=== PATIENT | male | born 1945 | race Two or more races ===

== ENCOUNTER → 2021-03-27 | Outpatient (CLI) | payer OTHER ==
[2021-03-27 09:45] LABS: Basophils # (auto) 0 10 ^3/uL (0-0.2); Eosinophils # (auto) 0.2 10 ^3/uL (0-0.8); Eosinophils % (auto) 4.2 % (0.0-7.0); Lymphocytes # (auto) 0.5 10 ^3/uL (0.4-5.4)
[2021-03-27 09:50] LABS: Basophils % (auto) 0.6 % (0.0-2.0); Lymphocytes % (auto) 11.9 % (10.0-50.0); Mean Corpuscular Hemoglobin 32.5 pg (28.0-32.0); Mean Corpuscular Hgb Conc. 33.7 g/dL (32.0-36.0); Mean Corpuscular Volume 96.7 fL (80.0-100.0); Monocytes # (auto) 0.5 10 ^3/uL (0-1.3); Monocytes % (auto) 12.6 % (0.0-12.0); Neutrophils % (auto) 70.7 % (37.0-80.0); Red Blood Cells 2.06 10^6/uL (4.5-5.90); Red Cell Distribution Width 16.8 % (11.8-14.3); White Blood Cell 4.2 10^3/uL (4.4-10.8)
[2021-03-27 10:58] LABS: Hemoglobin 6.7 g/dL (13.5-17.5)
[2021-03-27 11:05] LABS: Urine Bacteria FEW /hpf (None Seen); Urine Blood 1+ /uL (Negative); Urine Hyaline Cast FEW /lpf (0 - 2); Urine Specific Gravity 1.013 (1.001-1.035); Urine WBC 1 /hpf (0 - 3)
[2021-03-27 11:25] LABS: Albumin 3.2 g/dL (3.4-5.0); Calcium 8.4 mg/dL (8.5-10.1); Potassium 3.5 mmol/L (3.5-5.1)
[2021-03-27 11:30] LABS: BUN/Creatinine Ratio 6.4; Bilirubin, Total 0.9 mg/dL (0.2-1.0); Total Protein 6.9 g/dL (6.4-8.2)
== END | disposition home or self-care (01) ==
LOC: LAB 08:51
PROVIDERS: ATTEND Student in an Organized Health Care Education/Training Program
DX: E11.9 Type 2 diabetes mellitus without complications (principal); I10 Essential (primary) hypertension
CPT/HCPCS: 36415; 80053; 80061; 81001; 82043; 83036; 84443; 85025

== ENCOUNTER 2021-05-02 01:17 | Inpatient (IN) | payer OTHER ==
[~2021-05-02] VITALS: Ht 180.3 cm; Wt 101.1 kg
[2021-05-02] MEDS ORDERED: PANTOPRAZOLE 40 MG/10 ML VIAL INJ IV ONE (01:45)
[2021-05-02] MEDS ORDERED: METOPROLOL TARTRATE 1MG/1ML-5ML VIAL IV PRN (02:30)
[2021-05-02] MEDS ORDERED: DEXTROSE (50%) 50ML SYRG IV PRN (02:30)
[2021-05-02] MEDS ORDERED: PANTOPRAZOLE 80 MG in SODIUM CHL 0.9% 100 ML IV ONE (02:30)
[2021-05-02 02:44] LABS: Basophils # (auto) 0 10 ^3/uL (0-0.2); Eosinophils # (auto) 0.1 10 ^3/uL (0-0.8); Lymphocytes # (auto) 0.5 10 ^3/uL (0.4-5.4); Mean Corpuscular Volume 98.2 fL (80.0-100.0); Neutrophils # (auto) 2.6 10 ^3/uL (1.6-8.6); Nucleated Red Blood Cells % 0.1 %; White Blood Cell 3.8 10^3/uL (4.4-10.8)
[2021-05-02] MEDS ORDERED: SODIUM CHLORIDE 0.9% 500 ML IV SCH (02:45)
[2021-05-02] MEDS ORDERED: MORPHINE SULFATE INJECTION 2 MG/ML SYRG IV PRN ×2 (02:45→11:45)
[2021-05-02] MEDS ORDERED: NITROGLYCERIN 0.4 MG SL TAB SL PRN (02:45)
[2021-05-02] MEDS ORDERED: ONDANSETRON HCL 4 MG/2 ML VIAL IV PRN (02:45)
[2021-05-02] MEDS ORDERED: MORPHINE SULFATE 4 MG/ML SYR/VIAL IV PRN (02:45)
[2021-05-02 02:46] LABS: Basophils % (auto) 0.4 % (0.0-2.0); Eosinophils % (auto) 3.2 % (0.0-7.0); Hematocrit 22.8 % (41.0-53.0); Hemoglobin 7.7 g/dL (13.5-17.5); Lymphocytes % (auto) 13.6 % (10.0-50.0); Mean Corpuscular Hemoglobin 33.3 pg (28.0-32.0); Mean Corpuscular Hgb Conc. 33.9 g/dL (32.0-36.0); Monocytes # (auto) 0.6 10 ^3/uL (0-1.3); Monocytes % (auto) 14.6 % (0.0-12.0); Neutrophils % (auto) 68.2 % (37.0-80.0); Red Blood Cells 2.32 10^6/uL (4.5-5.90); Red Cell Distribution Width 16.3 % (11.8-14.3)
[2021-05-02 04:36] LABS: BUN/Creatinine Ratio 7.4; Calcium 8.3 mg/dL (8.5-10.1); Potassium 3.8 mmol/L (3.5-5.1)
[2021-05-02 04:39] LABS: Bilirubin, Total 0.8 mg/dL (0.2-1.0); Total Protein 6.3 g/dL (6.4-8.2)
[2021-05-02 04:40] LABS: INR 1.21 (0.9-1.15)
[2021-05-02 04:57] LABS: % Iron Saturation 12.9 % (20-55)
[2021-05-02 05:00] VITALS: BP 119/70
[2021-05-02] MEDS ORDERED: SEVE800T8 PO (05:08)
[2021-05-02] MEDS ORDERED: PANT40TA2 PO (05:08)
[2021-05-02] MEDS ORDERED: TERA2CAP45 PO (05:08)
[2021-05-02] MEDS ORDERED: FURO40TA4 PO (05:08)
[2021-05-02] MEDS ORDERED: CLOP75TA70 PO (05:08)
[2021-05-02] MEDS ORDERED: GABA300C10 PO (05:08)
[2021-05-02] MEDS ORDERED: FERR-20 PO (05:08)
[2021-05-02] MEDS ORDERED: APIX5TAB PO (05:08)
[2021-05-02] MEDS ORDERED: AMIT25TA12 PO (05:08)
[2021-05-02] MEDS ORDERED: NIFE1TAB30 PO (05:08)
[2021-05-02] MEDS ORDERED: LEVO50TA7 PO (05:08)
[2021-05-02] MEDS ORDERED: ATOR20TA50 PO (05:08)
[2021-05-02 08:37] LABS: Hematocrit 22.3 % (41.0-53.0); Hemoglobin 7.5 g/dL (13.5-17.5)
[2021-05-02 09:00] VITALS: BP 109/62
[2021-05-02] MEDS ORDERED: PANTOPRAZOLE 40 MG/10 ML VIAL INJ IV SCH (10:00)
[2021-05-02] MEDS: InsuLIN REG 1unit/0.01ml Soln (100units/ml) SC SCH ×3 (11:30→22:46)
[2021-05-02] MEDS: ACCU-CHEK COMFORT CURVE STRIP VI SCH ×2 (11:56→17:33)
[2021-05-02] MEDS ORDERED: FERROUS SULFATE 325mg EC TAB PO ONE (12:00)
[2021-05-02] MEDS ORDERED: NIFEdipine ER 30 MG TAB PO ONE (12:00)
[2021-05-02] MEDS: SEVELAMER 800 MG TAB PO SCH ×2 (12:00→17:45)
[2021-05-02] MEDS ORDERED: TERAZOSIN HCL 1 MG CAP PO ONE (12:00)
[2021-05-02 13:00] VITALS: BP 126/69
[2021-05-02 14:38] LABS: Hematocrit 22.6 % (41.0-53.0); Hemoglobin 7.6 g/dL (13.5-17.5)
[2021-05-02 17:00] VITALS: BP 128/69
[2021-05-02] MEDS: FUROSEMIDE 40 MG TAB PO SCH (17:45)
[2021-05-02 20:44] LABS: Hematocrit 24.1 % (41.0-53.0)
[2021-05-02 22:00] VITALS: BP 117/58
[2021-05-03 05:00] VITALS: BP 101/56
[2021-05-03] MEDS: ACCU-CHEK COMFORT CURVE STRIP VI SCH ×5 (05:17→21:53)
[2021-05-03 06:27] LABS: Basophils # (auto) 0 10 ^3/uL (0-0.2); Eosinophils # (auto) 0.2 10 ^3/uL (0-0.8); Lymphocytes # (auto) 0.5 10 ^3/uL (0.4-5.4); Monocytes # (auto) 0.6 10 ^3/uL (0-1.3); Nucleated Red Blood Cells % 0.1 %
[2021-05-03 06:31] LABS: Basophils % (auto) 0.5 % (0.0-2.0); Eosinophils % (auto) 3.1 % (0.0-7.0); Hematocrit 22.1 % (41.0-53.0); Hemoglobin 7.6 g/dL (13.5-17.5); Mean Corpuscular Hemoglobin 33.5 pg (28.0-32.0); Mean Corpuscular Hgb Conc. 34.2 g/dL (32.0-36.0); Monocytes % (auto) 11.4 % (0.0-12.0); Neutrophils # (auto) 3.9 10 ^3/uL (1.6-8.6); Red Blood Cells 2.26 10^6/uL (4.5-5.90); Red Cell Distribution Width 16.2 % (11.8-14.3); White Blood Cell 5.1 10^3/uL (4.4-10.8)
[2021-05-03] MEDS: FUROSEMIDE 40 MG TAB PO SCH ×2 (06:46→17:45)
[2021-05-03] MEDS: LEVOTHYROXINE SODIUM 50 MCG TAB PO SCH (06:46)
[2021-05-03 06:47] LABS: BUN/Creatinine Ratio 7.9; Calcium 8.5 mg/dL (8.5-10.1); Potassium 4.2 mmol/L (3.5-5.1)
[2021-05-03] MEDS: InsuLIN REG 1unit/0.01ml Soln (100units/ml) SC SCH ×4 (06:47→21:59)
[2021-05-03 06:50] LABS: Bilirubin, Total 0.8 mg/dL (0.2-1.0); Total Protein 6.1 g/dL (6.4-8.2)
[2021-05-03] MEDS: SEVELAMER 800 MG TAB PO SCH ×3 (07:44→17:45)
[2021-05-03 09:00] VITALS: BP 107/58
[2021-05-03] MEDS: FERROUS SULFATE 325mg EC TAB PO SCH (10:06)
[2021-05-03] MEDS: TERAZOSIN HCL 1 MG CAP PO SCH (10:06)
[2021-05-03] MEDS: GABAPENTIN 300 MG CAP PO SCH (10:07)
[2021-05-03] MEDS: ATORVASTATIN 20 MG TAB PO SCH (10:07)
[2021-05-03] MEDS: PANTOPRAZOLE 40 MG TAB PO SCH (10:07)
[2021-05-03] MEDS: NIFEdipine ER 30 MG TAB PO SCH (10:08)
[2021-05-03 13:00] VITALS: BP 119/59
[2021-05-03 17:00] VITALS: BP 112/60
[2021-05-03 22:00] VITALS: BP 113/62
[2021-05-04 05:00] VITALS: BP 112/58
[2021-05-04] MEDS: FUROSEMIDE 40 MG TAB PO SCH (06:17)
[2021-05-04] MEDS: LEVOTHYROXINE SODIUM 50 MCG TAB PO SCH (06:18)
[2021-05-04] MEDS: ACCU-CHEK COMFORT CURVE STRIP VI SCH ×2 (06:29→11:40)
[2021-05-04] MEDS: InsuLIN REG 1unit/0.01ml Soln (100units/ml) SC SCH ×2 (06:29→11:30)
[2021-05-04] MEDS: SEVELAMER 800 MG TAB PO SCH ×2 (07:33→14:06)
[2021-05-04 09:00] VITALS: BP 125/63
[2021-05-04] MEDS: TERAZOSIN HCL 1 MG CAP PO SCH (09:55)
[2021-05-04] MEDS: ATORVASTATIN 20 MG TAB PO SCH (09:55)
[2021-05-04] MEDS: FERROUS SULFATE 325mg EC TAB PO SCH (09:55)
[2021-05-04] MEDS: GABAPENTIN 300 MG CAP PO SCH (09:55)
[2021-05-04] MEDS: NIFEdipine ER 30 MG TAB PO SCH (09:56)
[2021-05-04] MEDS: PANTOPRAZOLE 40 MG TAB PO SCH (09:56)
[2021-05-04 12:48] LABS: Basophils # (auto) 0 10 ^3/uL (0-0.2); Eosinophils # (auto) 0.1 10 ^3/uL (0-0.8); Lymphocytes # (auto) 0.4 10 ^3/uL (0.4-5.4); White Blood Cell 4.3 10^3/uL (4.4-10.8)
[2021-05-04 12:50] LABS: Basophils % (auto) 0.7 % (0.0-2.0); Eosinophils % (auto) 3.4 % (0.0-7.0); Hematocrit 22.5 % (41.0-53.0); Hemoglobin 7.6 g/dL (13.5-17.5); Mean Corpuscular Hgb Conc. 33.7 g/dL (32.0-36.0); Mean Corpuscular Volume 97.9 fL (80.0-100.0); Monocytes # (auto) 0.5 10 ^3/uL (0-1.3); Monocytes % (auto) 11.5 % (0.0-12.0); Neutrophils # (auto) 3.2 10 ^3/uL (1.6-8.6); Neutrophils % (auto) 75.4 % (37.0-80.0); Red Cell Distribution Width 15.8 % (11.8-14.3)
[2021-05-04 13:00] VITALS: BP 133/75
[2021-05-04] MEDS ORDERED: SODIUM CHL 0.9% 1000 ML BAG XX ONE (13:45)
== END 2021-05-04 17:09 | disposition home or self-care (01) | DRG 377 ==
LOC: EDBD 01:17 → ER 01:22 → TELE-WESTW 02:35
PROVIDERS: ADMIT Internal Medicine; ATTEND Internal Medicine Pulmonary Disease
PROC: 5A1D70Z Performance of Urinary Filtration, Intermittent, Less than 6 Hours Per Day (ICD-10-PCS; principal; 2021-05-04)
DX: K29.71 Gastritis, unspecified, with bleeding (principal); N18.6 End stage renal disease; I48.20 Chronic atrial fibrillation, unspecified; D62 Acute posthemorrhagic anemia; I12.0 Hypertensive chronic kidney disease with stage 5 chronic kidney disease or end stage renal disease; N25.81 Secondary hyperparathyroidism of renal origin; Z20.822 Contact with and (suspected) exposure to COVID-19; E11.22 Type 2 diabetes mellitus with diabetic chronic kidney disease; I25.10 Atherosclerotic heart disease of native coronary artery without angina pectoris; R42 Dizziness and giddiness; Z99.2 Dependence on renal dialysis; Z79.01 Long term (current) use of anticoagulants; Z95.5 Presence of coronary angioplasty implant and graft; Z79.02 Long term (current) use of antithrombotics/antiplatelets; Z95.0 Presence of cardiac pacemaker
CPT/HCPCS: 36415; 80053; 82728; 82962; 83540; 83550; 85014; 85018; 85025; 85610; 86850; 86900; 86901; 87081; 87426; 90935; 93005; 96374; C9113; G0378; J1815

== ENCOUNTER → 2021-06-04 | Outpatient (CLI) | payer OTHER ==
[~2021-06-04] MED LIST: AMIT25TA12 PO; APIX5TAB PO; ATOR20TA50 PO; FERR-20 PO; FURO40TA4 PO; GABA300C10 PO; LEVO50TA7 PO; NIFE1TAB30 PO; PANT40TA2 PO; SEVE800T8 PO; TERA2CAP45 PO
[2021-06-04 09:42] LABS: Basophils # (auto) 0.2 10 ^3/uL (0-0.2); Basophils % (auto) 4.6 % (0.0-2.0); Eosinophils # (auto) 0.1 10 ^3/uL (0-0.8); Eosinophils % (auto) 3.7 % (0.0-7.0); Hematocrit 27.1 % (41.0-53.0); Lymphocytes # (auto) 0.3 10 ^3/uL (0.4-5.4); Lymphocytes % (auto) 8.6 % (10.0-50.0); Mean Corpuscular Hemoglobin 30.8 pg (28.0-32.0); Mean Corpuscular Hgb Conc. 33.2 g/dL (32.0-36.0); Mean Corpuscular Volume 92.8 fL (80.0-100.0); Monocytes # (auto) 0.6 10 ^3/uL (0-1.3); Monocytes % (auto) 15.5 % (0.0-12.0); Neutrophils # (auto) 2.7 10 ^3/uL (1.6-8.6); Neutrophils % (auto) 67.6 % (37.0-80.0); Red Blood Cells 2.91 10^6/uL (4.5-5.90); Red Cell Distribution Width 16.8 % (11.8-14.3); White Blood Cell 3.9 10^3/uL (4.4-10.8)
== END | disposition home or self-care (01) ==
LOC: LAB 08:45
PROVIDERS: ATTEND Internal Medicine
DX: I48.20 Chronic atrial fibrillation, unspecified (principal); D50.0 Iron deficiency anemia secondary to blood loss (chronic)
CPT/HCPCS: 36415; 85025

== ENCOUNTER → 2021-08-27 | Outpatient (CLI) | payer OTHER ==
[~2021-08-27] VITALS: Ht 180.3 cm; Wt 99.8 kg
[~2021-08-27] MED LIST changes: +ADENOSINE 84 MG in GIVE UN-DILUTED 0 ML IV ONE
[2021-08-27 10:02] VITALS: BP 141/78
== END | disposition home or self-care (01) ==
LOC: XYW 07:57
PROVIDERS: ATTEND Internal Medicine
DX: I42.9 Cardiomyopathy, unspecified (principal); I25.10 Atherosclerotic heart disease of native coronary artery without angina pectoris; I10 Essential (primary) hypertension; Z95.0 Presence of cardiac pacemaker
CPT/HCPCS: 93017; J0153

== ENCOUNTER → 2021-10-29 | Outpatient (CLI) | payer OTHER ==
[~2021-10-29] MED LIST changes: -ADENOSINE 84 MG in GIVE UN-DILUTED 0 ML IV ONE; +CHOL1TAB30 PO; +CLOP75TA70 PO; +INSUINJ48 SC; +INSUINJ49 SC; +LEVO750T8 PO; +SACU1TAB PO
== END | disposition home or self-care (01) ==
LOC: Rad HDHVI 15:48
PROVIDERS: ATTEND Internal Medicine Cardiovascular Disease
DX: I08.8 Other rheumatic multiple valve diseases (principal); I10 Essential (primary) hypertension; I27.20 Pulmonary hypertension, unspecified
CPT/HCPCS: 93306

== ENCOUNTER → 2021-11-11 | Outpatient (CLI) | payer OTHER ==
[~2021-11-11] MED LIST changes: -LEVO750T8 PO
[2021-11-11 09:01] VITALS: BP 90/60
[2021-11-11 09:20] VITALS: BP 100/58
[2021-11-11 12:34] LABS: Basophils # (auto) 0 10 ^3/uL (0-0.2); Basophils % (auto) 0.4 % (0.0-2.0); Eosinophils # (auto) 0.2 10 ^3/uL (0-0.8); Eosinophils % (auto) 3.6 % (0.0-7.0); Hematocrit 34.6 % (41.0-53.0); Hemoglobin 11.3 g/dL (13.5-17.5); Lymphocytes # (auto) 0.5 10 ^3/uL (0.4-5.4); Mean Corpuscular Hemoglobin 30.9 pg (28.0-32.0); Mean Corpuscular Hgb Conc. 32.7 g/dL (32.0-36.0); Mean Corpuscular Volume 94.6 fL (80.0-100.0); Monocytes # (auto) 0.6 10 ^3/uL (0-1.3); Monocytes % (auto) 14.4 % (0.0-12.0); Neutrophils # (auto) 2.9 10 ^3/uL (1.6-8.6); Neutrophils % (auto) 69.6 % (37.0-80.0); Nucleated Red Blood Cells % 0.1 %; Red Blood Cells 3.66 10^6/uL (4.5-5.90); Red Cell Distribution Width 16.3 % (11.8-14.3); White Blood Cell 4.2 10^3/uL (4.4-10.8)
[2021-11-11 12:43] LABS: INR 1.09 (0.9-1.15); Partial Thromboplastin Time 32.1 sec (24.6-33.4)
[2021-11-11 12:52] LABS: Calcium 8.7 mg/dL (8.5-10.1); Potassium 3.9 mmol/L (3.5-5.1)
[2021-11-11 12:54] LABS: BUN/Creatinine Ratio 7.5
== END | disposition home or self-care (01) ==
LOC: Rad HDHVI 08:49
PROVIDERS: ATTEND Internal Medicine Cardiovascular Disease
DX: Z01.818 Encounter for other preprocedural examination (principal); I48.91 Unspecified atrial fibrillation; R94.31 Abnormal electrocardiogram [ECG] [EKG]; R79.1 Abnormal coagulation profile; I70.0 Atherosclerosis of aorta; Z95.0 Presence of cardiac pacemaker
CPT/HCPCS: 36415; 71046; 80048; 85025; 85610; 85730; 93005; G0463

== ENCOUNTER 2021-11-13 06:53 | Inpatient (IN) | payer OTHER ==
[~2021-11-13] VITALS: Ht 170.2 cm; Wt 97.9 kg
[2021-11-13] VITALS (47 sets, daily range): BP systolic 75–120; BP diastolic 41–71
[2021-11-13] MEDS ORDERED: LIDOCAINE 2%HCL (LOCAL ANESTH.) INJ 20ML MDV ONE (08:11)
[2021-11-13] MEDS ORDERED: IODIXANOL 320MG/ML 100ML BTL IV ONE (08:11)
[2021-11-13] MEDS ORDERED: VANCOMYCIN HCL 1000 MG VL ONE (08:43)
[2021-11-13] MEDS ORDERED: MIDAZOLAM HCL 2MG/2ML 2ml VIAL (1mg/ml) ONE (08:44)
[2021-11-13] MEDS ORDERED: fentaNYL CITRATE 100 MCG/2 ML VL ONE (08:44)
[2021-11-13] MEDS ORDERED: VANCOMYCIN 1GM/250ML 250 ML IV ONE (08:44)
[2021-11-13] MEDS ORDERED: HYDROmorphone HCL 2 MG/ML VL/or syr ONE (09:19)
[2021-11-13] MEDS ORDERED: IOHEXOL 350 MG/ML 100ML IJ ONE (09:20)
[2021-11-13] MEDS ORDERED: DOPamine 1600MCG/ML D5W 250 ML IV ONE (09:45)
[2021-11-13] MEDS ORDERED: FUROSEMIDE 20 MG/2 ML VIAL ONE (10:12)
[2021-11-13] MEDS ORDERED: ONDANSETRON HCL 4 MG/2 ML VIAL IV PRN (11:20)
[2021-11-13] MEDS ORDERED: ONDANSETRON HCL 4 MG/2 ML VIAL ONE (11:26)
[2021-11-13] MEDS ORDERED: NITROGLYCERIN 0.4 MG SL TAB SL PRN (11:30)
[2021-11-13] MEDS ORDERED: MORPHINE SULFATE INJ 2 MG/ml SYRG IV PRN (11:30)
[2021-11-13] MEDS ORDERED: ceFAZolin 1GM/50ML 50 ML IV ONE (12:28)
[2021-11-13] MEDS: ceFAZolin 1GM/50ML 50 ML IV SCH ×2 (12:34→20:32)
[2021-11-13] MEDS: SODIUM CHLOR 0.9% PF (SALINE LOCK) 10ML VIAL/SYR IV SCH ×2 (14:00→22:09)
[2021-11-13] MEDS ORDERED: DEXTROSE (50%) 50ML SYRG IV PRN (14:45)
[2021-11-13] MEDS: ACCU-CHEK COMFORT CURVE STRIP VI SCH ×2 (17:49→22:10)
[2021-11-13] MEDS: InsuLIN REG 1unit/0.01ml Soln (100units/ml) SC SCH ×2 (17:53→22:09)
[2021-11-13] MEDS ORDERED: VANCOMYCIN 1GM/250ML 250 ML IV SCH (22:00)
[2021-11-13] MEDS: DOPamine 1600MCG/ML D5W 250 ML IV SCH (22:56)
[2021-11-14] VITALS (68 sets, daily range): BP systolic 90–126; BP diastolic 48–95
[2021-11-14] MEDS: ceFAZolin 1GM/50ML 50 ML IV SCH (03:50)
[2021-11-14] MEDS: DOPamine 1600MCG/ML D5W 250 ML IV SCH ×2 (03:51→16:19)
[2021-11-14] MEDS: InsuLIN REG 1unit/0.01ml Soln (100units/ml) SC SCH ×4 (06:13→22:23)
[2021-11-14] MEDS: ACCU-CHEK COMFORT CURVE STRIP VI SCH ×4 (06:14→22:22)
[2021-11-14] MEDS: SODIUM CHLOR 0.9% PF (SALINE LOCK) 10ML VIAL/SYR IV SCH ×3 (06:14→21:59)
[2021-11-14] MEDS ORDERED: SODIUM CHL 0.9% 1000 ML BAG XX ONE (07:00)
[2021-11-14 23:50] LABS: Basophils # (auto) 0 10 ^3/uL (0-0.2); Basophils % (auto) 0.3 % (0.0-2.0); Eosinophils # (auto) 0.1 10 ^3/uL (0-0.8); Eosinophils % (auto) 2.9 % (0.0-7.0); Hemoglobin 9.2 g/dL (13.5-17.5); Lymphocytes # (auto) 0.4 10 ^3/uL (0.4-5.4); Lymphocytes % (auto) 8.1 % (10.0-50.0); Mean Corpuscular Hemoglobin 30.7 pg (28.0-32.0); Mean Corpuscular Hgb Conc. 32.8 g/dL (32.0-36.0); Mean Corpuscular Volume 93.6 fL (80.0-100.0); Monocytes # (auto) 0.7 10 ^3/uL (0-1.3); Monocytes % (auto) 14.2 % (0.0-12.0); Neutrophils # (auto) 3.8 10 ^3/uL (1.6-8.6); Neutrophils % (auto) 74.5 % (37.0-80.0); Nucleated Red Blood Cells % 0.1 %; Red Cell Distribution Width 15.9 % (11.8-14.3); White Blood Cell 5.1 10^3/uL (4.4-10.8)
[2021-11-15] VITALS (67 sets, daily range): BP systolic 93–165; BP diastolic 44–97
[2021-11-15 00:06] LABS: BUN/Creatinine Ratio 10.5; Calcium 7.8 mg/dL (8.5-10.1); Potassium 4.7 mmol/L (3.5-5.1)
[2021-11-15 00:09] LABS: Bilirubin, Total 0.6 mg/dL (0.2-1.0); Total Protein 5.8 g/dL (6.4-8.2)
[2021-11-15] MEDS: InsuLIN REG 1unit/0.01ml Soln (100units/ml) SC SCH ×4 (05:20→22:00)
[2021-11-15] MEDS: ACCU-CHEK COMFORT CURVE STRIP VI SCH ×4 (05:21→22:03)
[2021-11-15] MEDS: SODIUM CHLOR 0.9% PF (SALINE LOCK) 10ML VIAL/SYR IV SCH ×3 (05:21→22:03)
[2021-11-15] MEDS: DOPamine 1600MCG/ML D5W 250 ML IV SCH ×2 (07:01→21:43)
[2021-11-15] MEDS ORDERED: NOREPINEPHRINE 8 MG/250ML KIT 250 ML IV ONE ×2 (10:34→10:36)
[2021-11-15] MEDS: NOREPINEPHRINE 8 MG/250ML KIT 250 ML IV SCH (10:35)
[2021-11-15] MEDS ORDERED: ETOMIDATE (2MG/ML) 20ML VIAL IV ONE ×2 (10:39→10:45)
[2021-11-15] MEDS ORDERED: fentaNYL Drip 2500mCg/250mlNS 250 ML IV ONE (10:44)
[2021-11-15] MEDS ORDERED: KETAMINE 50mg/ML 10ml Vial (500mg/10ml) IV ONE (10:45)
[2021-11-15] MEDS ORDERED: KETAMINE 50mg/ML 10ml Vial (500mg/10ml) IM ONE (10:46)
[2021-11-15] MEDS ORDERED: ROCURONIUM 10MG/ML 10ML VIAL IV ONE ×2 (10:51→10:52)
[2021-11-15 12:24] LABS: Basophils # (auto) 0 10 ^3/uL (0-0.2); Basophils % (auto) 0.4 % (0.0-2.0); Eosinophils # (auto) 0.1 10 ^3/uL (0-0.8); Eosinophils % (auto) 1.7 % (0.0-7.0); Hematocrit 30.8 % (41.0-53.0); Lymphocytes # (auto) 0.3 10 ^3/uL (0.4-5.4); Lymphocytes % (auto) 5.8 % (10.0-50.0); Mean Corpuscular Hemoglobin 30.9 pg (28.0-32.0); Mean Corpuscular Hgb Conc. 32.5 g/dL (32.0-36.0); Monocytes # (auto) 0.6 10 ^3/uL (0-1.3); Monocytes % (auto) 10.5 % (0.0-12.0); Neutrophils # (auto) 4.9 10 ^3/uL (1.6-8.6); Neutrophils % (auto) 81.6 % (37.0-80.0); Red Blood Cells 3.24 10^6/uL (4.5-5.90); Red Cell Distribution Width 16.1 % (11.8-14.3); White Blood Cell 6.1 10^3/uL (4.4-10.8)
[2021-11-15 12:25] LABS: Albumin 3.3 g/dL (3.4-5.0); BUN/Creatinine Ratio 10.3; Calcium 7.9 mg/dL (8.5-10.1); Potassium 4.6 mmol/L (3.5-5.1)
[2021-11-15 12:28] LABS: Total Protein 6.5 g/dL (6.4-8.2)
[2021-11-15 12:41] LABS: INR 1.16 (0.9-1.15)
[2021-11-15] MEDS ORDERED: PIPERACILLIN-TAZOB 2.25GM 0.75 GM in D5W 5% 50 ML IV SCH (16:45)
[2021-11-15] MEDS ORDERED: PIPERACILLIN-TAZOB 2.25GM 50 ML IV ONE (16:45)
[2021-11-15] MEDS: PIPERACILLIN-TAZOB 2.25GM 50 ML IV SCH (18:17)
[2021-11-15] MEDS: fentaNYL Drip 2500mCg/250mlNS 250 ML IV SCH (19:00)
[2021-11-15] MEDS ORDERED: IPRATROPIUM BROM 0.5 MG/2.5ML INH SOL NEB PRN (22:30)
[2021-11-15] MEDS ORDERED: ALBUTEROL SULF 2.5 MG/0.5ML(0.5%) NEB SOLN NEB PRN (22:30)
[2021-11-16] VITALS (62 sets, daily range): BP systolic 83–134; BP diastolic 40–83
[2021-11-16] MEDS ORDERED: PROPOFOL 100 ML IV ONE (02:47)
[2021-11-16] MEDS: PROPOFOL 100 ML IV SCH (03:22)
[2021-11-16] MEDS: fentaNYL Drip 2500mCg/250mlNS 250 ML IV SCH (03:24)
[2021-11-16] MEDS: SODIUM CHLOR 0.9% PF (SALINE LOCK) 10ML VIAL/SYR IV SCH ×3 (05:39→21:55)
[2021-11-16] MEDS: PIPERACILLIN-TAZOB 2.25GM 50 ML IV SCH ×2 (05:39→17:03)
[2021-11-16] MEDS: ACCU-CHEK COMFORT CURVE STRIP VI SCH ×4 (05:39→22:01)
[2021-11-16] MEDS: InsuLIN REG 1unit/0.01ml Soln (100units/ml) SC SCH ×4 (05:40→21:56)
[2021-11-16 08:37] LABS: Basophils # (auto) 0 10 ^3/uL (0-0.2); Basophils % (auto) 0.5 % (0.0-2.0); Eosinophils # (auto) 0.1 10 ^3/uL (0-0.8); Eosinophils % (auto) 1.6 % (0.0-7.0); Hematocrit 27.4 % (41.0-53.0); Hemoglobin 9.1 g/dL (13.5-17.5); Lymphocytes # (auto) 0.5 10 ^3/uL (0.4-5.4); Lymphocytes % (auto) 8.9 % (10.0-50.0); Mean Corpuscular Hemoglobin 31.2 pg (28.0-32.0); Mean Corpuscular Hgb Conc. 33.3 g/dL (32.0-36.0); Mean Corpuscular Volume 93.8 fL (80.0-100.0); Monocytes # (auto) 0.9 10 ^3/uL (0-1.3); Monocytes % (auto) 15.5 % (0.0-12.0); Neutrophils % (auto) 73.5 % (37.0-80.0); Nucleated Red Blood Cells % 0.1 %; Red Blood Cells 2.92 10^6/uL (4.5-5.90); Red Cell Distribution Width 15.9 % (11.8-14.3); White Blood Cell 5.5 10^3/uL (4.4-10.8)
[2021-11-16 09:09] LABS: Albumin 2.9 g/dL (3.4-5.0); BUN/Creatinine Ratio 10.1; Potassium 4.4 mmol/L (3.5-5.1)
[2021-11-16 09:11] LABS: Total Protein 5.9 g/dL (6.4-8.2)
[2021-11-16] MEDS: NOREPINEPHRINE 8 MG/250ML KIT 250 ML IV SCH (10:35)
[2021-11-16] MEDS: DOPamine 1600MCG/ML D5W 250 ML IV SCH (11:56)
[2021-11-16] MEDS ORDERED: MIDAZOLAM HCL 2MG/2ML 2ml VIAL (1mg/ml) IV PRN (17:45)
[2021-11-16] MEDS: levETIRAcetam 500 MG TAB PO SCH (21:58)
[2021-11-17] VITALS (20 sets, daily range): BP systolic 93–142; BP diastolic 54–88
[2021-11-17] MEDS: PROPOFOL 100 ML IV SCH (02:45)
[2021-11-17] MEDS: DOPamine 1600MCG/ML D5W 250 ML IV SCH ×2 (03:07→17:49)
[2021-11-17 03:53] LABS: Hematocrit 27.3 % (41.0-53.0); Hemoglobin 9.2 g/dL (13.5-17.5)
[2021-11-17] MEDS: PIPERACILLIN-TAZOB 2.25GM 50 ML IV SCH ×2 (05:00→16:33)
[2021-11-17] MEDS: InsuLIN REG 1unit/0.01ml Soln (100units/ml) SC SCH ×4 (06:06→21:24)
[2021-11-17] MEDS: ACCU-CHEK COMFORT CURVE STRIP VI SCH ×4 (06:06→21:22)
[2021-11-17] MEDS: SODIUM CHLOR 0.9% PF (SALINE LOCK) 10ML VIAL/SYR IV SCH ×3 (06:06→21:25)
[2021-11-17] MEDS ORDERED: SODIUM CHL 0.9% 1000 ML BAG XX ONE (07:00)
[2021-11-17 07:43] LABS: Albumin 2.9 g/dL (3.4-5.0); Calcium 7.9 mg/dL (8.5-10.1); Potassium 4.8 mmol/L (3.5-5.1)
[2021-11-17 07:46] LABS: BUN/Creatinine Ratio 10.1; Bilirubin, Total 0.8 mg/dL (0.2-1.0); Total Protein 6.1 g/dL (6.4-8.2)
[2021-11-17] MEDS: levETIRAcetam 500 MG TAB PO SCH ×2 (09:42→21:22)
[2021-11-17] MEDS: NOREPINEPHRINE 8 MG/250ML KIT 250 ML IV SCH (10:35)
[2021-11-17] MEDS: fentaNYL Drip 2500mCg/250mlNS 250 ML IV SCH (10:45)
[2021-11-17] MEDS ORDERED: EPOETIN ALFA-EPBX 4,000 UNIT/ML VIAL SC ONE (21:00)
[2021-11-18] VITALS (12 sets, daily range): BP systolic 100–120; BP diastolic 59–80
[2021-11-18] MEDS: PROPOFOL 100 ML IV SCH (01:28)
[2021-11-18] MEDS: PIPERACILLIN-TAZOB 2.25GM 50 ML IV SCH (04:56)
[2021-11-18] MEDS: SODIUM CHLOR 0.9% PF (SALINE LOCK) 10ML VIAL/SYR IV SCH (06:08)
[2021-11-18] MEDS: ACCU-CHEK COMFORT CURVE STRIP VI SCH ×2 (06:46→12:05)
[2021-11-18] MEDS: InsuLIN REG 1unit/0.01ml Soln (100units/ml) SC SCH ×2 (06:46→12:04)
[2021-11-18] MEDS: DOPamine 1600MCG/ML D5W 250 ML IV SCH (08:31)
[2021-11-18] MEDS: levETIRAcetam 500 MG TAB PO SCH (09:57)
[2021-11-18] MEDS: fentaNYL Drip 2500mCg/250mlNS 250 ML IV SCH (09:58)
[2021-11-18] MEDS: NOREPINEPHRINE 8 MG/250ML KIT 250 ML IV SCH (09:58)
[2021-11-18] MEDS ORDERED: LEVO750T8 PO ×2 (14:48)
== END 2021-11-18 16:20 | disposition home or self-care (01) | DRG 226 ==
LOC: CATH 06:53 → TELE 12:20 → ICU WEST 14:47
PROVIDERS: ADMIT Internal Medicine Cardiovascular Disease; ATTEND Internal Medicine Nephrology
PROC: 0JH608Z Insertion of Defibrillator Generator into Chest Subcutaneous Tissue and Fascia, Open Approach (ICD-10-PCS; principal; 2021-11-13)
PROC: 02H63KZ Insertion of Defibrillator Lead into Right Atrium, Percutaneous Approach (ICD-10-PCS; 2021-11-13)
PROC: 02HK3KZ Insertion of Defibrillator Lead into Right Ventricle, Percutaneous Approach (ICD-10-PCS; 2021-11-13)
PROC: 02PA3MZ Removal of Cardiac Lead from Heart, Percutaneous Approach (ICD-10-PCS; 2021-11-13)
PROC: 5A1D70Z Performance of Urinary Filtration, Intermittent, Less than 6 Hours Per Day (ICD-10-PCS; 2021-11-14)
PROC: 02HV33Z Insertion of Infusion Device into Superior Vena Cava, Percutaneous Approach (ICD-10-PCS; 2021-11-15)
PROC: B548ZZA Ultrasonography of Superior Vena Cava, Guidance (ICD-10-PCS; 2021-11-15)
PROC: 5A1935Z Respiratory Ventilation, Less than 24 Consecutive Hours (ICD-10-PCS; 2021-11-15)
PROC: 0BH17EZ Insertion of Endotracheal Airway into Trachea, Via Natural or Artificial Opening (ICD-10-PCS; 2021-11-15)
PROC: 5A1D70Z Performance of Urinary Filtration, Intermittent, Less than 6 Hours Per Day (ICD-10-PCS; 2021-11-17)
DX: I13.2 Hypertensive heart and chronic kidney disease with heart failure and with stage 5 chronic kidney disease, or end stage renal disease (principal); I50.23 Acute on chronic systolic (congestive) heart failure; N18.6 End stage renal disease; R57.0 Cardiogenic shock; J96.91 Respiratory failure, unspecified with hypoxia; J18.9 Pneumonia, unspecified organism; I48.20 Chronic atrial fibrillation, unspecified; Z99.11 Dependence on respirator [ventilator] status; I25.5 Ischemic cardiomyopathy; D63.1 Anemia in chronic kidney disease; Z99.2 Dependence on renal dialysis; I42.0 Dilated cardiomyopathy; E11.22 Type 2 diabetes mellitus with diabetic chronic kidney disease; E11.42 Type 2 diabetes mellitus with diabetic polyneuropathy; Z20.822 Contact with and (suspected) exposure to COVID-19; G40.409 Other generalized epilepsy and epileptic syndromes, not intractable, without status epilepticus; E78.5 Hyperlipidemia, unspecified; E83.39 Other disorders of phosphorus metabolism; I25.10 Atherosclerotic heart disease of native coronary artery without angina pectoris; Z79.899 Other long term (current) drug therapy; Z95.5 Presence of coronary angioplasty implant and graft
CPT/HCPCS: 36415; 36600; 70450; 71045; 80053; 82306; 82805; 82962; 83735; 84100; 84484; 85014; 85018; 85025; 85379; 85610; 87070; 87077; 87081; 87186; 87205; 90935; 93005; 93306; 94002; 94003; 94640; 97110; 97116; 97163; 97530; 99152; 99153; A4618; G0378; J0690; J2250; J2405; J2543; J2704; Q9967

== ENCOUNTER → 2022-01-22 | Outpatient (CLI) | payer OTHER ==
[~2022-01-22] MED LIST changes: -APIX5TAB PO; +LEVO750T8 PO
== END | disposition home or self-care (01) ==
LOC: Rad HDHVI 12:50
PROVIDERS: ATTEND Internal Medicine Cardiovascular Disease
DX: I08.8 Other rheumatic multiple valve diseases (principal); R06.02 Shortness of breath; I10 Essential (primary) hypertension; Z95.0 Presence of cardiac pacemaker
CPT/HCPCS: 93306

== ENCOUNTER → 2022-02-02 | Outpatient (CLI) | payer OTHER ==
[~2022-02-02] VITALS: Ht 180.3 cm; Wt 102.1 kg
== END | disposition home or self-care (01) ==
LOC: Rad HDHVI 09:47
PROVIDERS: ATTEND Internal Medicine Cardiovascular Disease
DX: R07.9 Chest pain, unspecified (principal); I13.2 Hypertensive heart and chronic kidney disease with heart failure and with stage 5 chronic kidney disease, or end stage renal disease; I50.43 Acute on chronic combined systolic (congestive) and diastolic (congestive) heart failure; N18.6 End stage renal disease; E11.42 Type 2 diabetes mellitus with diabetic polyneuropathy; E11.22 Type 2 diabetes mellitus with diabetic chronic kidney disease; I42.0 Dilated cardiomyopathy; I48.91 Unspecified atrial fibrillation; E78.00 Pure hypercholesterolemia, unspecified; Z95.810 Presence of automatic (implantable) cardiac defibrillator
CPT/HCPCS: 78472; 96374; 96375; A9505

== ENCOUNTER 2022-03-09 18:28 | Inpatient (IN) | payer OTHER ==
[~2022-03-09] VITALS: Ht 180.3 cm; Wt 108.0 kg
[2022-03-09 22:18] VITALS: BP_SYST 128; BP_SYST 129; BP_DIAS 76
[2022-03-10] MEDS ORDERED: DEXTROSE (50%) 50ML SYRG IV PRN (00:30)
[2022-03-10 05:00] VITALS: BP 115/40
[2022-03-10 06:03] LABS: Hematocrit 33.6 % (41.0-53.0); Mean Corpuscular Hemoglobin 31.9 pg (28.0-32.0); Mean Corpuscular Hgb Conc. 32.9 g/dL (32.0-36.0); Red Blood Cells 3.46 10^6/uL (4.5-5.90); Red Cell Distribution Width 17.7 % (11.8-14.3); White Blood Cell 6.1 10^3/uL (4.4-10.8)
[2022-03-10 06:16] LABS: Calcium 8.8 mg/dL (8.5-10.1); Potassium 4.9 mmol/L (3.5-5.1)
[2022-03-10 06:18] LABS: BUN/Creatinine Ratio 8.7
[2022-03-10 06:28] LABS: Band Neutrophils % (manual) 0; Basophils % (manual) 0 (0.0-2.0); Blast Cells 0; Eosinophils % (manual) 0 (0-7); Metamyelocytes % 0; Myelocytes % 0; Promyelocytes % 0; Reactive Lymphocytes 0
[2022-03-10] MEDS: ACCU-CHEK COMFORT CURVE STRIP VI SCH ×2 (06:44→12:09)
[2022-03-10] MEDS: InsuLIN REG 1unit/0.01ml Soln (100units/ml) SC SCH ×2 (06:44→12:09)
[2022-03-10] MEDS ORDERED: PANTOPRAZOLE 40 MG TAB PO SCH (07:00)
[2022-03-10] MEDS ORDERED: LEVOTHYROXINE SODIUM 50 MCG TAB PO SCH (07:00)
[2022-03-10] MEDS: SEVELAMER 800 MG TAB PO SCH ×2 (08:15→11:58)
[2022-03-10 09:00] VITALS: BP 93/56
[2022-03-10] MEDS ORDERED: ASPirin 81 mg TAB PO SCH (10:00)
[2022-03-10] MEDS ORDERED: NIFEdipine ER 30 MG TAB PO SCH (10:00)
[2022-03-10] MEDS ORDERED: ALLOPURINOL 100 MG TAB PO SCH (10:00)
[2022-03-10] MEDS ORDERED: METOPROLOL TARTRATE 25 MG TAB PO SCH (10:00)
[2022-03-10] MEDS ORDERED: GABAPENTIN 300 MG CAP PO SCH (10:00)
[2022-03-10] MEDS ORDERED: CLOPIDOGREL BISULFATE 75 MG TAB PO SCH (10:00)
[2022-03-10] MEDS ORDERED: ALBUMIN 25% 100 ML IV SCH (10:15)
[2022-03-10] MEDS ORDERED: SODIUM CHLORIDE 0.9% 1,000 ML IV SCH (10:15)
[2022-03-10 11:30] LABS: Lymphocytes % (manual) 3 (10.0-50.0); Monocytes % (manual) 18 (0-12)
[2022-03-10] MEDS ORDERED: SODIUM CHL 0.9% 1000 ML BAG XX ONE (11:45)
[2022-03-10 12:24] LABS: Cholesterol 70 mg/dL (< 200)
[2022-03-10 12:27] LABS: HDL Cholesterol 31 mg/dL (40-59); LDL Cholesterol 32 mg/dL (< 100); Triglycerides 58 mg/dL (< 150)
[2022-03-10 13:25] VITALS: BP 119/70
[2022-03-10 13:26] VITALS: BP 119/70
[2022-03-10] MEDS ORDERED: B-COMPLEX W/ C & FOLIC ACID(NEPHROVITE TAB) PO SCH (18:00)
[2022-03-10] MEDS ORDERED: NORTRIPTYLINE HCL 25 MG CAP PO SCH (18:00)
[2022-03-10] MEDS ORDERED: EPOETIN ALFA-EPBX 4,000 UNIT/ML VIAL SC ONE (21:00)
[2022-03-10] MEDS ORDERED: ATORVASTATIN 20 MG TAB PO SCH (22:00)
[2022-03-10] MEDS ORDERED: TERAZOSIN HCL 1 MG CAP PO SCH (22:00)
[2022-03-11] MEDS ORDERED: SODIUM CHL 0.9% 1000 ML BAG XX ONE (07:00)
== END 2022-03-10 14:00 | disposition home or self-care (01) | DRG 64 ==
LOC: TELE-EAST 22:20
PROVIDERS: ADMIT Hospitalist; ATTEND Internal Medicine
DX: I63.9 Cerebral infarction, unspecified (principal); N18.6 End stage renal disease; I12.0 Hypertensive chronic kidney disease with stage 5 chronic kidney disease or end stage renal disease; D63.1 Anemia in chronic kidney disease; M89.8X9 Other specified disorders of bone, unspecified site; R79.89 Other specified abnormal findings of blood chemistry; E11.22 Type 2 diabetes mellitus with diabetic chronic kidney disease; I48.91 Unspecified atrial fibrillation; Z20.822 Contact with and (suspected) exposure to COVID-19; Z99.2 Dependence on renal dialysis
CPT/HCPCS: 36415; 80048; 80061; 82962; 83036; 84443; 85007; 85027; 87081; 87426; G0378; J1815

== ENCOUNTER 2022-04-06 13:36 | Inpatient (IN) | payer OTHER ==
[~2022-04-06] VITALS: Ht 175.3 cm; Wt 200.0 kg
[2022-04-06 15:17] LABS: Basophils # (auto) 0 10 ^3/uL (0-0.2); Basophils % (auto) 0.5 % (0.0-2.0); Eosinophils # (auto) 0.1 10 ^3/uL (0-0.8); Eosinophils % (auto) 1.9 % (0.0-7.0); Hematocrit 30.5 % (41.0-53.0); Hemoglobin 9.8 g/dL (13.5-17.5); Lymphocytes # (auto) 0.5 10 ^3/uL (0.4-5.4); Lymphocytes % (auto) 8.6 % (10.0-50.0); Mean Corpuscular Hemoglobin 31.6 pg (28.0-32.0); Mean Corpuscular Volume 98.7 fL (80.0-100.0); Monocytes # (auto) 0.7 10 ^3/uL (0-1.3); Neutrophils # (auto) 4.9 10 ^3/uL (1.6-8.6); Nucleated Red Blood Cells % 0.1 %; Red Cell Distribution Width 18.7 % (11.8-14.3); White Blood Cell 6.3 10^3/uL (4.4-10.8)
[2022-04-06 15:22] LABS: BUN/Creatinine Ratio 9.3; Calcium 8.6 mg/dL (8.5-10.1)
[2022-04-06 15:24] LABS: Magnesium 3.2 mg/dL (1.6-2.6)
[2022-04-06 15:25] LABS: Bilirubin, Total 0.8 mg/dL (0.2-1.0); Total Protein 7.2 g/dL (6.4-8.2)
[2022-04-06 15:34] LABS: Potassium 5.7 mmol/L (3.5-5.1)
[2022-04-06] MEDS ORDERED: SODIUM CHLORIDE 0.9% 1,000 ML IV ONE (20:30)
[2022-04-06] MEDS ORDERED: MORPHINE SULFATE INJ 2 MG/ml SYRG IV PRN (20:30)
[2022-04-06] MEDS ORDERED: ONDANSETRON HCL 4 MG/2 ML VIAL IV PRN (20:30)
[2022-04-06] MEDS ORDERED: HYDROcodone-ACET 5/325MG TAB PO PRN (20:30)
[2022-04-06] MEDS ORDERED: DOCUSATE SOD 100 MG CAP PO PRN (20:30)
[2022-04-06] MEDS ORDERED: NITROGLYCERIN 0.4 MG SL TAB SL PRN (20:30)
[2022-04-06] MEDS ORDERED: ACETAMINOPHEN 325 MG TAB PO PRN (20:30)
[2022-04-06] MEDS ORDERED: AMITRIPTYLINE HCL 25 MG TAB PO PRN (20:45)
[2022-04-06] MEDS ORDERED: DEXTROSE (50%) 50ML SYRG IV PRN (20:45)
[2022-04-06] MEDS: ACCU-CHEK COMFORT CURVE STRIP VI SCH (22:41)
[2022-04-06] MEDS: InsuLIN REG 1unit/0.01ml Soln (100units/ml) SC SCH (22:43)
[2022-04-06] MEDS ORDERED: SODIUM ZIRCONIUM CYCL 10 GM PAK PO ONE (23:00)
[2022-04-06] MEDS ORDERED: SODIUM CHL 0.9% 1000 ML BAG XX ONE (23:00)
[2022-04-06] MEDS ORDERED: DEXTROSE (50%) 50ML SYRG IV ONE (23:00)
[2022-04-06] MEDS ORDERED: InsuLIN REG 1unit/0.01ml Soln (100units/ml) IV ONE (23:00)
[2022-04-07] MEDS ORDERED: ALBUMIN 5% 250 ML IV ONE (01:30)
[2022-04-07] MEDS: PHENYLEPHRINE IV 250 ML IV SCH ×3 (04:14→19:40)
[2022-04-07 06:57] LABS: Basophils # (auto) 0.1 10 ^3/uL (0-0.2); Basophils % (auto) 0.9 % (0.0-2.0); Eosinophils # (auto) 0.2 10 ^3/uL (0-0.8); Eosinophils % (auto) 2.3 % (0.0-7.0); Hematocrit 29.7 % (41.0-53.0); Hemoglobin 9.6 g/dL (13.5-17.5); Lymphocytes # (auto) 0.6 10 ^3/uL (0.4-5.4); Lymphocytes % (auto) 8.5 % (10.0-50.0); Mean Corpuscular Hemoglobin 31.6 pg (28.0-32.0); Mean Corpuscular Hgb Conc. 32.4 g/dL (32.0-36.0); Mean Corpuscular Volume 97.4 fL (80.0-100.0); Monocytes # (auto) 0.8 10 ^3/uL (0-1.3); Monocytes % (auto) 10.7 % (0.0-12.0); Neutrophils # (auto) 5.5 10 ^3/uL (1.6-8.6); Neutrophils % (auto) 77.6 % (37.0-80.0); Nucleated Red Blood Cells % 0.1 %; Red Blood Cells 3.05 10^6/uL (4.5-5.90); Red Cell Distribution Width 19.2 % (11.8-14.3)
[2022-04-07] MEDS: InsuLIN REG 1unit/0.01ml Soln (100units/ml) SC SCH ×4 (07:00→21:52)
[2022-04-07] MEDS ORDERED: SACUBITRIL-VALSARTAN 24mg/26mg TAB PO SCH (07:00)
[2022-04-07 07:06] LABS: BUN/Creatinine Ratio 9.2; Calcium 8.3 mg/dL (8.5-10.1); Potassium 4.8 mmol/L (3.5-5.1)
[2022-04-07 07:09] LABS: Total Protein 6.7 g/dL (6.4-8.2)
[2022-04-07] MEDS: ACCU-CHEK COMFORT CURVE STRIP VI SCH ×4 (07:09→21:52)
[2022-04-07] MEDS: LEVOTHYROXINE SODIUM 50 MCG TAB PO SCH (07:23)
[2022-04-07] MEDS: NOREPINEPHRINE 8 MG/250ML KIT 250 ML IV SCH (07:29)
[2022-04-07] MEDS ORDERED: ALBUMIN 25% 50 ML IV ONE (09:15)
[2022-04-07] MEDS ORDERED: MIDODRINE HCL 10 MG TAB PO ONE (09:15)
[2022-04-07] MEDS ORDERED: TERAZOSIN HCL 1 MG CAP PO SCH (10:00)
[2022-04-07] MEDS ORDERED: ALBUMIN 25% 100 ML IV ONE (10:15)
[2022-04-07] MEDS: SEVELAMER 800 MG TAB PO SCH ×3 (12:00→17:39)
[2022-04-07] MEDS: PANTOPRAZOLE 40 MG/10 ML VIAL INJ IV SCH (12:13)
[2022-04-07] MEDS: TERAZOSIN HCL 1 MG CAP PO SCH (12:13)
[2022-04-07] MEDS: CLOPIDOGREL BISULFATE 75 MG TAB PO SCH (12:13)
[2022-04-07] MEDS: ATORVASTATIN 20 MG TAB PO SCH (17:39)
[2022-04-07] MEDS ORDERED: EPOETIN ALFA-EPBX 10,000 UNIT/1ML VIAL SC ONE (21:00)
[2022-04-08] MEDS: PHENYLEPHRINE IV 250 ML IV SCH ×3 (04:00→20:40)
[2022-04-08] MEDS: ACCU-CHEK COMFORT CURVE STRIP VI SCH ×4 (06:49→23:21)
[2022-04-08 06:50] LABS: Basophils # (auto) 0 10 ^3/uL (0-0.2); Basophils % (auto) 0.3 % (0.0-2.0); Eosinophils # (auto) 0.1 10 ^3/uL (0-0.8); Eosinophils % (auto) 1.6 % (0.0-7.0); Hematocrit 30.4 % (41.0-53.0); Hemoglobin 9.6 g/dL (13.5-17.5); Lymphocytes # (auto) 0.6 10 ^3/uL (0.4-5.4); Mean Corpuscular Hemoglobin 31.8 pg (28.0-32.0); Mean Corpuscular Hgb Conc. 31.5 g/dL (32.0-36.0); Mean Corpuscular Volume 101.1 fL (80.0-100.0); Monocytes % (auto) 12.1 % (0.0-12.0); Neutrophils # (auto) 6.8 10 ^3/uL (1.6-8.6); Red Cell Distribution Width 19.8 % (11.8-14.3); White Blood Cell 8.6 10^3/uL (4.4-10.8)
[2022-04-08 06:56] LABS: BUN/Creatinine Ratio 9.7; Calcium 8.6 mg/dL (8.5-10.1)
[2022-04-08] MEDS: LEVOTHYROXINE SODIUM 50 MCG TAB PO SCH (06:56)
[2022-04-08] MEDS: InsuLIN REG 1unit/0.01ml Soln (100units/ml) SC SCH ×4 (06:58→23:39)
[2022-04-08] MEDS: NOREPINEPHRINE 8 MG/250ML KIT 250 ML IV SCH (07:30)
[2022-04-08] MEDS: SEVELAMER 800 MG TAB PO SCH ×3 (09:02→18:04)
[2022-04-08] MEDS: PANTOPRAZOLE 40 MG/10 ML VIAL INJ IV SCH (10:27)
[2022-04-08] MEDS: TERAZOSIN HCL 1 MG CAP PO SCH (10:28)
[2022-04-08] MEDS: CLOPIDOGREL BISULFATE 75 MG TAB PO SCH (10:28)
[2022-04-08] MEDS ORDERED: SODIUM CHL 0.9% 1000 ML BAG XX ONE (16:00)
[2022-04-08] MEDS ORDERED: MIDODRINE HCL 10 MG TAB PO ONE (16:00)
[2022-04-08] MEDS: ATORVASTATIN 20 MG TAB PO SCH (18:04)
[2022-04-09] MEDS: PHENYLEPHRINE IV 250 ML IV SCH ×3 (05:00→21:40)
[2022-04-09] MEDS ORDERED: EPOETIN ALFA-EPBX 10,000 UNIT/1ML VIAL SC ONE (05:00)
[2022-04-09 06:14] LABS: Hematocrit 27.8 % (41.0-53.0); Hemoglobin 9.4 g/dL (13.5-17.5)
[2022-04-09] MEDS: ACCU-CHEK COMFORT CURVE STRIP VI SCH ×3 (06:50→18:17)
[2022-04-09] MEDS: InsuLIN REG 1unit/0.01ml Soln (100units/ml) SC SCH ×3 (06:53→18:18)
[2022-04-09] MEDS: LEVOTHYROXINE SODIUM 50 MCG TAB PO SCH (06:54)
[2022-04-09] MEDS: NOREPINEPHRINE 8 MG/250ML KIT 250 ML IV SCH (08:40)
[2022-04-09] MEDS: SEVELAMER 800 MG TAB PO SCH ×3 (08:42→18:17)
[2022-04-09] MEDS: CLOPIDOGREL BISULFATE 75 MG TAB PO SCH (11:12)
[2022-04-09] MEDS: PANTOPRAZOLE 40 MG/10 ML VIAL INJ IV SCH (11:12)
[2022-04-09] MEDS: MIDODRINE HCL 10 MG TAB PO SCH ×2 (12:55→18:17)
[2022-04-09 15:24] LABS: BUN/Creatinine Ratio 9.1; Calcium 8.6 mg/dL (8.5-10.1); Potassium 5.3 mmol/L (3.5-5.1)
[2022-04-09] MEDS ORDERED: SODIUM ZIRCONIUM CYCL 10 GM PAK PO ONE (16:00)
[2022-04-09] MEDS: ATORVASTATIN 20 MG TAB PO SCH (18:17)
[2022-04-10] MEDS: InsuLIN REG 1unit/0.01ml Soln (100units/ml) SC SCH ×5 (00:05→22:23)
[2022-04-10] MEDS: ACCU-CHEK COMFORT CURVE STRIP VI SCH ×5 (00:05→22:06)
[2022-04-10] MEDS: PHENYLEPHRINE IV 250 ML IV SCH ×3 (05:20→22:40)
[2022-04-10 06:25] LABS: Basophils # (auto) 0 10 ^3/uL (0-0.2); Basophils % (auto) 0.3 % (0.0-2.0); Eosinophils # (auto) 0.1 10 ^3/uL (0-0.8); Eosinophils % (auto) 1.8 % (0.0-7.0); Hematocrit 28.4 % (41.0-53.0); Hemoglobin 9.6 g/dL (13.5-17.5); Lymphocytes # (auto) 0.4 10 ^3/uL (0.4-5.4); Lymphocytes % (auto) 6.1 % (10.0-50.0); Mean Corpuscular Hemoglobin 32.8 pg (28.0-32.0); Mean Corpuscular Hgb Conc. 33.7 g/dL (32.0-36.0); Mean Corpuscular Volume 97.1 fL (80.0-100.0); Monocytes # (auto) 0.7 10 ^3/uL (0-1.3); Monocytes % (auto) 10.5 % (0.0-12.0); Neutrophils # (auto) 5.2 10 ^3/uL (1.6-8.6); Neutrophils % (auto) 81.3 % (37.0-80.0); Nucleated Red Blood Cells % 0.1 %; Red Blood Cells 2.93 10^6/uL (4.5-5.90); Red Cell Distribution Width 19.4 % (11.8-14.3); White Blood Cell 6.3 10^3/uL (4.4-10.8)
[2022-04-10] MEDS: LEVOTHYROXINE SODIUM 50 MCG TAB PO SCH (06:42)
[2022-04-10] MEDS: MIDODRINE HCL 10 MG TAB PO SCH ×3 (06:43→18:08)
[2022-04-10 06:44] LABS: Calcium 8.9 mg/dL (8.5-10.1); Potassium 5.4 mmol/L (3.5-5.1)
[2022-04-10 06:46] LABS: BUN/Creatinine Ratio 9.3
[2022-04-10] MEDS ORDERED: MIDODRINE HCL 10 MG TAB PO ONE (07:00)
[2022-04-10] MEDS ORDERED: SODIUM CHL 0.9% 1000 ML BAG XX ONE (07:00)
[2022-04-10] MEDS: SEVELAMER 800 MG TAB PO SCH ×3 (08:00→18:08)
[2022-04-10] MEDS: CLOPIDOGREL BISULFATE 75 MG TAB PO SCH (10:00)
[2022-04-10] MEDS: PANTOPRAZOLE 40 MG/10 ML VIAL INJ IV SCH (10:02)
[2022-04-10] MEDS: NOREPINEPHRINE 8 MG/250ML KIT 250 ML IV SCH (14:41)
[2022-04-10] MEDS ORDERED: IOHEXOL 350 MG/ML 100ML IJ ONE (15:38)
[2022-04-10] MEDS: ATORVASTATIN 20 MG TAB PO SCH (18:08)
[2022-04-11 02:58] VITALS: BP 103/63
[2022-04-11] MEDS ORDERED: SODIUM CHL 0.9% 1000 ML BAG XX ONE (07:00)
== END 2022-04-12 02:56 | disposition short-term general hospital (02) | DRG 314 ==
LOC: ER 13:36 → TELE 20:34
PROVIDERS: ADMIT Nurse Practitioner Family; ATTEND Internal Medicine
PROC: 5A1D70Z Performance of Urinary Filtration, Intermittent, Less than 6 Hours Per Day (ICD-10-PCS; principal; 2022-04-07)
PROC: 5A1D70Z Performance of Urinary Filtration, Intermittent, Less than 6 Hours Per Day (ICD-10-PCS; 2022-04-10)
DX: I95.9 Hypotension, unspecified (principal); E43 Unspecified severe protein-calorie malnutrition; N18.6 End stage renal disease; R57.1 Hypovolemic shock; E87.20 Acidosis, unspecified; G93.40 Encephalopathy, unspecified; I12.0 Hypertensive chronic kidney disease with stage 5 chronic kidney disease or end stage renal disease; J98.11 Atelectasis; N25.81 Secondary hyperparathyroidism of renal origin; Z68.44 Body mass index [BMI] 60.0-69.9, adult; Z20.822 Contact with and (suspected) exposure to COVID-19; E11.42 Type 2 diabetes mellitus with diabetic polyneuropathy; D63.1 Anemia in chronic kidney disease; E03.9 Hypothyroidism, unspecified; E11.22 Type 2 diabetes mellitus with diabetic chronic kidney disease; E11.65 Type 2 diabetes mellitus with hyperglycemia; E86.1 Hypovolemia; E87.5 Hyperkalemia; E88.09 Other disorders of plasma-protein metabolism, not elsewhere classified; I48.91 Unspecified atrial fibrillation; K80.20 Calculus of gallbladder without cholecystitis without obstruction; Z95.0 Presence of cardiac pacemaker; Z82.49 Family history of ischemic heart disease and other diseases of the circulatory system; Z99.2 Dependence on renal dialysis; Z83.3 Family history of diabetes mellitus; Z84.1 Family history of disorders of kidney and ureter
CPT/HCPCS: 36415; 70496; 74176; 80048; 80053; 82962; 83605; 83690; 83735; 85014; 85018; 85025; 87040; 87426; 87804; 90935; 96365; 96375; C9113; G0378; J1642; J1815; P9047

== ENCOUNTER 2022-04-23 16:36 | Inpatient (IN) | payer OTHER ==
[~2022-04-23] VITALS: Ht 170.2 cm; Wt 101.6 kg
[2022-04-23] VITALS (19 sets, daily range): BP systolic 92–129; BP diastolic 50–66
[~2022-04-23 16:36] MED LIST changes: -LEVO750T8 PO
[2022-04-23] MEDS ORDERED: NITROGLYCERIN 0.4 MG SL TAB SL PRN ×2 (17:15→18:45)
[2022-04-23] MEDS ORDERED: MORPHINE SULFATE INJ 2 MG/ml SYRG IV PRN ×2 (17:15→18:45)
[2022-04-23] MEDS ORDERED: PANTOPRAZOLE 40 MG/10 ML VIAL INJ IV ONE (19:00)
[2022-04-23 21:15] LABS: Basophils # (auto) 0.1 10 ^3/uL (0-0.2); Basophils % (auto) 0.4 % (0.0-2.0); Eosinophils # (auto) 0 10 ^3/uL (0-0.8); Eosinophils % (auto) 0.1 % (0.0-7.0); Hematocrit 27.9 % (41.0-53.0); Hemoglobin 9.3 g/dL (13.5-17.5); Lymphocytes # (auto) 0.3 10 ^3/uL (0.4-5.4); Lymphocytes % (auto) 2.2 % (10.0-50.0); Mean Corpuscular Hemoglobin 32.3 pg (28.0-32.0); Mean Corpuscular Hgb Conc. 33.4 g/dL (32.0-36.0); Mean Corpuscular Volume 96.8 fL (80.0-100.0); Monocytes # (auto) 1.7 10 ^3/uL (0-1.3); Monocytes % (auto) 12.5 % (0.0-12.0); Neutrophils # (auto) 11.5 10 ^3/uL (1.6-8.6); Neutrophils % (auto) 84.8 % (37.0-80.0); Nucleated Red Blood Cells % 0.1 %; Red Blood Cells 2.89 10^6/uL (4.5-5.90); White Blood Cell 13.6 10^3/uL (4.4-10.8)
[2022-04-23 21:28] LABS: BUN/Creatinine Ratio 10.1; Potassium 3.7 mmol/L (3.5-5.1)
[2022-04-23 21:36] LABS: Red Cell Distribution Width 20.9 % (11.8-14.3)
[2022-04-23] MEDS: SEVELAMER 800 MG TAB PO SCH (22:00)
[2022-04-23] MEDS: HEPARIN SODIUM (PORCINE) 5000 UNITS/ML 1ML VIAL SC SCH (22:32)
[2022-04-24] VITALS (47 sets, daily range): BP systolic 70–128; BP diastolic 39–63
[2022-04-24] MEDS: SEVELAMER 800 MG TAB PO SCH ×3 (05:07→21:18)
[2022-04-24 05:21] LABS: Basophils # (auto) 0 10 ^3/uL (0-0.2); Basophils % (auto) 0.1 % (0.0-2.0); Eosinophils # (auto) 0 10 ^3/uL (0-0.8); Hemoglobin 9.5 g/dL (13.5-17.5); Lymphocytes # (auto) 0.4 10 ^3/uL (0.4-5.4); Lymphocytes % (auto) 3.4 % (10.0-50.0); Monocytes # (auto) 1.5 10 ^3/uL (0-1.3); Monocytes % (auto) 11.8 % (0.0-12.0); Neutrophils # (auto) 11.1 10 ^3/uL (1.6-8.6); Neutrophils % (auto) 84.7 % (37.0-80.0); Nucleated Red Blood Cells % 0.1 %; Red Blood Cells 2.89 10^6/uL (4.5-5.90); White Blood Cell 13.1 10^3/uL (4.4-10.8)
[2022-04-24 05:36] LABS: Red Cell Distribution Width 20.9 % (11.8-14.3)
[2022-04-24] MEDS: LEVOTHYROXINE SODIUM 50 MCG TAB PO SCH (06:18)
[2022-04-24] MEDS: SACUBITRIL-VALSARTAN 24mg/26mg TAB PO SCH (08:00)
[2022-04-24] MEDS ORDERED: CLOPIDOGREL BISULFATE 75 MG TAB PO SCH (08:00)
[2022-04-24] MEDS: NIFEdipine ER 30 MG TAB PO SCH (08:48)
[2022-04-24] MEDS: GABAPENTIN 300 MG CAP PO SCH (09:54)
[2022-04-24] MEDS: PANTOPRAZOLE 40 MG/10 ML VIAL INJ IV SCH (09:54)
[2022-04-24] MEDS: TERAZOSIN HCL 1 MG CAP PO SCH (09:55)
[2022-04-24] MEDS: FERROUS SULFATE 325mg EC TAB PO SCH (09:55)
[2022-04-24] MEDS: CHOLECALCIFEROL (VITD3) 1,000UNIT=25mCg TAB PO SCH (09:55)
[2022-04-24] MEDS: HEPARIN SODIUM (PORCINE) 5000 UNITS/ML 1ML VIAL SC SCH ×2 (10:08→21:18)
[2022-04-24 12:00] LABS: INR 1.57 (0.9-1.15); Partial Thromboplastin Time 44.8 sec (24.6-33.4)
[2022-04-24] MEDS: NOREPINEPHRINE 8 MG/250ML KIT 250 ML IV SCH (15:12)
[2022-04-24 15:40] LABS: Potassium 3.4 mmol/L (3.5-5.1)
[2022-04-24 15:41] LABS: Bilirubin, Total 1.3 mg/dL (0.2-1.0); Calcium 7.2 mg/dL (8.5-10.1)
[2022-04-24 15:43] LABS: Albumin 2.4 g/dL (3.4-5.0); Total Protein 5.2 g/dL (6.4-8.2)
[2022-04-24] MEDS ORDERED: VANCOMYCIN PER PHARMACY 0 MG IV SCH (17:00)
[2022-04-24] MEDS ORDERED: ATORVASTATIN 20 MG TAB PO SCH (18:00)
[2022-04-24] MEDS ORDERED: VANCOMYCIN 1GM/250ML 250 ML IV ONE (18:30)
[2022-04-25] VITALS (95 sets, daily range): BP systolic 93–147; BP diastolic 14–61
[2022-04-25] MEDS: NOREPINEPHRINE 8 MG/250ML KIT 250 ML IV SCH ×2 (01:24→14:38)
[2022-04-25 05:39] LABS: Basophils # (auto) 0 10 ^3/uL (0-0.2); Eosinophils # (auto) 0.1 10 ^3/uL (0-0.8); Eosinophils % (auto) 0.5 % (0.0-7.0); Lymphocytes # (auto) 0.3 10 ^3/uL (0.4-5.4); Monocytes # (auto) 1.4 10 ^3/uL (0-1.3); Neutrophils # (auto) 11.8 10 ^3/uL (1.6-8.6)
[2022-04-25 05:46] LABS: Hematocrit 25.2 % (41.0-53.0); Hemoglobin 8.2 g/dL (13.5-17.5); Lymphocytes % (auto) 2.3 % (10.0-50.0); Mean Corpuscular Hemoglobin 32.9 pg (28.0-32.0); Mean Corpuscular Hgb Conc. 32.6 g/dL (32.0-36.0); Mean Corpuscular Volume 100.7 fL (80.0-100.0); Monocytes % (auto) 10.2 % (0.0-12.0); Red Blood Cells 2.51 10^6/uL (4.5-5.90); White Blood Cell 13.5 10^3/uL (4.4-10.8)
[2022-04-25 05:52] LABS: Potassium 4.1 mmol/L (3.5-5.1)
[2022-04-25 05:55] LABS: Red Cell Distribution Width 20.9 % (11.8-14.3)
[2022-04-25 05:59] LABS: Albumin 2.5 g/dL (3.4-5.0); BUN/Creatinine Ratio 10.7; Bilirubin, Total 1.5 mg/dL (0.2-1.0); Calcium 7.1 mg/dL (8.5-10.1); Total Protein 5.3 g/dL (6.4-8.2)
[2022-04-25] MEDS: SEVELAMER 800 MG TAB PO SCH ×3 (06:13→21:37)
[2022-04-25] MEDS: LEVOTHYROXINE SODIUM 50 MCG TAB PO SCH (06:13)
[2022-04-25] MEDS: NIFEdipine ER 30 MG TAB PO SCH (08:00)
[2022-04-25] MEDS: SACUBITRIL-VALSARTAN 24mg/26mg TAB PO SCH (08:00)
[2022-04-25] MEDS: PANTOPRAZOLE 40 MG/10 ML VIAL INJ IV SCH (09:39)
[2022-04-25] MEDS: CHOLECALCIFEROL (VITD3) 1,000UNIT=25mCg TAB PO SCH (09:40)
[2022-04-25] MEDS: GABAPENTIN 300 MG CAP PO SCH (09:40)
[2022-04-25] MEDS: FERROUS SULFATE 325mg EC TAB PO SCH (09:40)
[2022-04-25] MEDS: HEPARIN SODIUM (PORCINE) 5000 UNITS/ML 1ML VIAL SC SCH ×2 (09:42→21:39)
[2022-04-25] MEDS: TERAZOSIN HCL 1 MG CAP PO SCH (09:44)
[2022-04-25] MEDS: ATORVASTATIN 20 MG TAB PO SCH (21:37)
[2022-04-26] VITALS (96 sets, daily range): BP systolic 91–159; BP diastolic 10–59
[2022-04-26 05:55] LABS: Basophils # (auto) 0 10 ^3/uL (0-0.2); Basophils % (auto) 0.1 % (0.0-2.0); Eosinophils # (auto) 0.1 10 ^3/uL (0-0.8); Eosinophils % (auto) 1.3 % (0.0-7.0); Hematocrit 25.4 % (41.0-53.0); Hemoglobin 8.5 g/dL (13.5-17.5); Lymphocytes # (auto) 0.2 10 ^3/uL (0.4-5.4); Lymphocytes % (auto) 2.1 % (10.0-50.0); Mean Corpuscular Hemoglobin 33.9 pg (28.0-32.0); Mean Corpuscular Hgb Conc. 33.4 g/dL (32.0-36.0); Mean Corpuscular Volume 101.5 fL (80.0-100.0); Monocytes % (auto) 8.8 % (0.0-12.0); Neutrophils # (auto) 9.9 10 ^3/uL (1.6-8.6); Neutrophils % (auto) 87.7 % (37.0-80.0); Nucleated Red Blood Cells % 0.1 %; White Blood Cell 11.3 10^3/uL (4.4-10.8)
[2022-04-26] MEDS: SEVELAMER 800 MG TAB PO SCH ×3 (05:55→21:34)
[2022-04-26] MEDS: LEVOTHYROXINE SODIUM 50 MCG TAB PO SCH (05:56)
[2022-04-26 06:16] LABS: Albumin 2.3 g/dL (3.4-5.0); Calcium 7.2 mg/dL (8.5-10.1); Potassium 4.3 mmol/L (3.5-5.1)
[2022-04-26 06:21] LABS: BUN/Creatinine Ratio 9.7; Bilirubin, Total 1.3 mg/dL (0.2-1.0); Total Protein 5.6 g/dL (6.4-8.2)
[2022-04-26 06:32] LABS: Red Cell Distribution Width 20.6 % (11.8-14.3)
[2022-04-26] MEDS ORDERED: SODIUM CHL 0.9% 1000 ML BAG XX ONE (07:30)
[2022-04-26] MEDS: SACUBITRIL-VALSARTAN 24mg/26mg TAB PO SCH (08:00)
[2022-04-26] MEDS: NIFEdipine ER 30 MG TAB PO SCH (08:00)
[2022-04-26] MEDS: TERAZOSIN HCL 1 MG CAP PO SCH (09:37)
[2022-04-26] MEDS: PANTOPRAZOLE 40 MG/10 ML VIAL INJ IV SCH (09:37)
[2022-04-26] MEDS: FERROUS SULFATE 325mg EC TAB PO SCH (09:37)
[2022-04-26] MEDS: GABAPENTIN 300 MG CAP PO SCH (09:37)
[2022-04-26] MEDS: HEPARIN SODIUM (PORCINE) 5000 UNITS/ML 1ML VIAL SC SCH ×2 (09:37→21:41)
[2022-04-26] MEDS: CHOLECALCIFEROL (VITD3) 1,000UNIT=25mCg TAB PO SCH (09:38)
[2022-04-26] MEDS: NOREPINEPHRINE 8 MG/250ML KIT 250 ML IV SCH (10:52)
[2022-04-26] MEDS ORDERED: VANCOMYCIN 500 MG in D5W 5% 100 ML IV ONE (15:00)
[2022-04-26] MEDS ORDERED: EPOETIN ALFA-EPBX 10,000 UNIT/1ML VIAL SC ONE (21:00)
[2022-04-26] MEDS: ATORVASTATIN 20 MG TAB PO SCH (21:10)
[2022-04-27] VITALS (74 sets, daily range): BP systolic 86–126; BP diastolic 39–70
[2022-04-27 05:47] LABS: Basophils # (auto) 0 10 ^3/uL (0-0.2); Eosinophils # (auto) 0.1 10 ^3/uL (0-0.8); Eosinophils % (auto) 0.5 % (0.0-7.0); Hemoglobin 8.2 g/dL (13.5-17.5); Lymphocytes # (auto) 0.2 10 ^3/uL (0.4-5.4); Neutrophils % (auto) 88.5 % (37.0-80.0); Nucleated Red Blood Cells % 0.1 %
[2022-04-27 05:48] LABS: Basophils % (auto) 0.1 % (0.0-2.0); Hematocrit 23.7 % (41.0-53.0); Lymphocytes % (auto) 2.1 % (10.0-50.0); Mean Corpuscular Hemoglobin 34.2 pg (28.0-32.0); Mean Corpuscular Hgb Conc. 34.7 g/dL (32.0-36.0); Mean Corpuscular Volume 98.5 fL (80.0-100.0); Monocytes % (auto) 8.8 % (0.0-12.0); Neutrophils # (auto) 10.4 10 ^3/uL (1.6-8.6); Red Cell Distribution Width 20.8 % (11.8-14.3); White Blood Cell 11.8 10^3/uL (4.4-10.8)
[2022-04-27 05:55] LABS: INR 1.22 (0.9-1.15); Partial Thromboplastin Time 38.1 sec (24.6-33.4)
[2022-04-27 06:05] LABS: Potassium 4.1 mmol/L (3.5-5.1)
[2022-04-27 06:15] LABS: Albumin 2.3 g/dL (3.4-5.0); BUN/Creatinine Ratio 8.7; Bilirubin, Total 1.2 mg/dL (0.2-1.0); Calcium 7.2 mg/dL (8.5-10.1); Total Protein 5.6 g/dL (6.4-8.2)
[2022-04-27] MEDS: SEVELAMER 800 MG TAB PO SCH ×3 (06:15→21:45)
[2022-04-27] MEDS: LEVOTHYROXINE SODIUM 50 MCG TAB PO SCH (06:16)
[2022-04-27] MEDS: SACUBITRIL-VALSARTAN 24mg/26mg TAB PO SCH (08:00)
[2022-04-27] MEDS: HEPARIN SODIUM (PORCINE) 5000 UNITS/ML 1ML VIAL SC SCH ×2 (10:00→21:53)
[2022-04-27] MEDS: GABAPENTIN 300 MG CAP PO SCH (10:00)
[2022-04-27] MEDS: CHOLECALCIFEROL (VITD3) 1,000UNIT=25mCg TAB PO SCH (10:00)
[2022-04-27] MEDS: FERROUS SULFATE 325mg EC TAB PO SCH (10:00)
[2022-04-27] MEDS: NOREPINEPHRINE 8 MG/250ML KIT 250 ML IV SCH (10:07)
[2022-04-27] MEDS ORDERED: DOXYCYCLINE 100 MG TAB/CAP PO ONE (12:15)
[2022-04-27] MEDS ORDERED: LIDOCAINE 2%HCL (LOCAL ANESTH.) INJ 10ml MDV ONE (13:06)
[2022-04-27] MEDS ORDERED: MIDAZOLAM HCL 2MG/2ML 2ml VIAL (1mg/ml) ONE (13:07)
[2022-04-27] MEDS ORDERED: fentaNYL CITRATE 100 MCG/2 ML VL ONE (13:07)
[2022-04-27] MEDS ORDERED: HEPARIN SODIUM (PORCINE) 5000 UNITS/ML 1ML VIAL ONE (13:42)
[2022-04-27] MEDS: PANTOPRAZOLE 40 MG/10 ML VIAL INJ IV SCH (14:13)
[2022-04-27] MEDS: IPRATROPIUM BROM 0.5 MG/2.5ML INH SOL NEB SCH (18:28)
[2022-04-27] MEDS: ALBUTEROL MEDNEB 2.5 mg/3ml NEB NEB SCH (18:28)
[2022-04-27] MEDS: DOCUSATE SOD 100 MG CAP PO SCH (21:45)
[2022-04-27] MEDS: PIPERACILLIN-TAZOB 2.25GM 50 ML IV SCH (21:45)
[2022-04-27] MEDS: DOXYCYCLINE 100 MG TAB/CAP PO SCH (21:45)
[2022-04-27] MEDS: ATORVASTATIN 20 MG TAB PO SCH (21:45)
[2022-04-28] VITALS (28 sets, daily range): BP systolic 102–148; BP diastolic 11–52
[2022-04-28] MEDS: IPRATROPIUM BROM 0.5 MG/2.5ML INH SOL NEB SCH ×4 (00:32→18:27)
[2022-04-28] MEDS: ALBUTEROL MEDNEB 2.5 mg/3ml NEB NEB SCH ×4 (00:33→18:27)
[2022-04-28 05:36] LABS: Basophils # (auto) 0 10 ^3/uL (0-0.2); Basophils % (auto) 0.1 % (0.0-2.0); Eosinophils # (auto) 0 10 ^3/uL (0-0.8); Lymphocytes # (auto) 0.2 10 ^3/uL (0.4-5.4)
[2022-04-28 05:38] LABS: Eosinophils % (auto) 0.2 % (0.0-7.0); Hemoglobin 8.3 g/dL (13.5-17.5); Mean Corpuscular Hemoglobin 34.6 pg (28.0-32.0); Mean Corpuscular Hgb Conc. 34.6 g/dL (32.0-36.0); Mean Corpuscular Volume 99.8 fL (80.0-100.0); Monocytes # (auto) 0.9 10 ^3/uL (0-1.3); Monocytes % (auto) 9.1 % (0.0-12.0); Neutrophils # (auto) 9.1 10 ^3/uL (1.6-8.6); Neutrophils % (auto) 88.6 % (37.0-80.0); Nucleated Red Blood Cells % 0.1 %; White Blood Cell 10.3 10^3/uL (4.4-10.8)
[2022-04-28 05:52] LABS: Calcium 7.4 mg/dL (8.5-10.1); Potassium 4.4 mmol/L (3.5-5.1)
[2022-04-28 06:04] LABS: Red Cell Distribution Width 21.2 % (11.8-14.3)
[2022-04-28] MEDS: LEVOTHYROXINE SODIUM 50 MCG TAB PO SCH (06:06)
[2022-04-28] MEDS: SEVELAMER 800 MG TAB PO SCH ×3 (06:06→21:24)
[2022-04-28] MEDS ORDERED: SODIUM CHL 0.9% 1000 ML BAG XX ONE (07:00)
[2022-04-28] MEDS ORDERED: ALBUMIN 25% 100 ML IV PRN ×2 (08:30)
[2022-04-28] MEDS: PIPERACILLIN-TAZOB 2.25GM 50 ML IV SCH ×2 (11:37→21:24)
[2022-04-28] MEDS: HEPARIN SODIUM (PORCINE) 5000 UNITS/ML 1ML VIAL SC SCH ×2 (11:38→21:28)
[2022-04-28] MEDS: DOXYCYCLINE 100 MG TAB/CAP PO SCH ×2 (11:39→21:25)
[2022-04-28] MEDS: DOCUSATE SOD 100 MG CAP PO SCH ×2 (11:39→21:24)
[2022-04-28] MEDS: GABAPENTIN 300 MG CAP PO SCH (11:39)
[2022-04-28] MEDS: CHOLECALCIFEROL (VITD3) 1,000UNIT=25mCg TAB PO SCH (11:39)
[2022-04-28] MEDS: PANTOPRAZOLE 40 MG/10 ML VIAL INJ IV SCH (11:42)
[2022-04-28] MEDS: FERROUS SULFATE 325mg EC TAB PO SCH (11:43)
[2022-04-28] MEDS ORDERED: EPOETIN ALFA-EPBX 10,000 UNIT/1ML VIAL SC ONE (21:00)
[2022-04-28] MEDS: ATORVASTATIN 20 MG TAB PO SCH (21:24)
[2022-04-29] MEDS: IPRATROPIUM BROM 0.5 MG/2.5ML INH SOL NEB SCH ×5 (00:10→17:41)
[2022-04-29] MEDS: ALBUTEROL MEDNEB 2.5 mg/3ml NEB NEB SCH ×5 (00:10→17:41)
[2022-04-29 05:00] VITALS: BP 103/66
[2022-04-29] MEDS: SEVELAMER 800 MG TAB PO SCH ×3 (05:45→22:11)
[2022-04-29 06:02] LABS: Basophils # (auto) 0 10 ^3/uL (0-0.2); Eosinophils # (auto) 0.1 10 ^3/uL (0-0.8); Lymphocytes # (auto) 0.3 10 ^3/uL (0.4-5.4); Lymphocytes % (auto) 2.2 % (10.0-50.0)
[2022-04-29 06:04] LABS: Basophils % (auto) 0.2 % (0.0-2.0); Eosinophils % (auto) 0.7 % (0.0-7.0); Hematocrit 24.9 % (41.0-53.0); Hemoglobin 8.5 g/dL (13.5-17.5); Mean Corpuscular Hemoglobin 33.9 pg (28.0-32.0); Mean Corpuscular Hgb Conc. 34.1 g/dL (32.0-36.0); Mean Corpuscular Volume 99.5 fL (80.0-100.0); Monocytes # (auto) 1.1 10 ^3/uL (0-1.3); Neutrophils % (auto) 87.9 % (37.0-80.0); White Blood Cell 12.5 10^3/uL (4.4-10.8)
[2022-04-29] MEDS: LEVOTHYROXINE SODIUM 50 MCG TAB PO SCH (06:06)
[2022-04-29 06:18] LABS: BUN/Creatinine Ratio 7.4; Calcium 7.8 mg/dL (8.5-10.1); Potassium 3.7 mmol/L (3.5-5.1)
[2022-04-29 06:22] LABS: Red Cell Distribution Width 21.7 % (11.8-14.3)
[2022-04-29 09:00] VITALS: BP 110/30
[2022-04-29] MEDS: HEPARIN SODIUM (PORCINE) 5000 UNITS/ML 1ML VIAL SC SCH ×2 (09:53→22:16)
[2022-04-29] MEDS: GABAPENTIN 300 MG CAP PO SCH (09:54)
[2022-04-29] MEDS: PANTOPRAZOLE 40 MG/10 ML VIAL INJ IV SCH (09:54)
[2022-04-29] MEDS: FERROUS SULFATE 325mg EC TAB PO SCH (09:54)
[2022-04-29] MEDS: PIPERACILLIN-TAZOB 2.25GM 50 ML IV SCH ×2 (09:54→22:11)
[2022-04-29] MEDS: CHOLECALCIFEROL (VITD3) 1,000UNIT=25mCg TAB PO SCH (09:55)
[2022-04-29] MEDS: DOXYCYCLINE 100 MG TAB/CAP PO SCH ×2 (09:55→22:11)
[2022-04-29] MEDS: DOCUSATE SOD 100 MG CAP PO SCH ×2 (09:55→22:11)
[2022-04-29 13:18] VITALS: BP 142/74
[2022-04-29] MEDS ORDERED: DOX100T PO (14:07)
[2022-04-29] MEDS ORDERED: CEPH-510 PO (14:07)
[2022-04-29 17:24] VITALS: BP 125/44
[2022-04-29 22:00] VITALS: BP 119/36
[2022-04-29] MEDS: ATORVASTATIN 20 MG TAB PO SCH (22:11)
[2022-04-30] MEDS: ALBUTEROL MEDNEB 2.5 mg/3ml NEB NEB SCH ×4 (00:11→18:29)
[2022-04-30] MEDS: IPRATROPIUM BROM 0.5 MG/2.5ML INH SOL NEB SCH ×4 (00:11→18:29)
[2022-04-30] MEDS: ACETAMINOPHEN 325 MG TAB PO PRN (02:34)
[2022-04-30 05:00] VITALS: BP 105/37
[2022-04-30] MEDS: LEVOTHYROXINE SODIUM 50 MCG TAB PO SCH (06:41)
[2022-04-30] MEDS: SEVELAMER 800 MG TAB PO SCH ×3 (06:41→23:14)
[2022-04-30] MEDS ORDERED: SODIUM CHL 0.9% 1000 ML BAG XX ONE (07:00)
[2022-04-30 08:30] VITALS: BP 97/26
[2022-04-30] MEDS: DOXYCYCLINE 100 MG TAB/CAP PO SCH ×2 (09:20→23:14)
[2022-04-30] MEDS: PIPERACILLIN-TAZOB 2.25GM 50 ML IV SCH ×2 (09:20→23:14)
[2022-04-30] MEDS: DOCUSATE SOD 100 MG CAP PO SCH ×2 (09:20→23:14)
[2022-04-30] MEDS: CHOLECALCIFEROL (VITD3) 1,000UNIT=25mCg TAB PO SCH (09:21)
[2022-04-30] MEDS: GABAPENTIN 300 MG CAP PO SCH (09:21)
[2022-04-30] MEDS: FERROUS SULFATE 325mg EC TAB PO SCH (09:21)
[2022-04-30] MEDS: PANTOPRAZOLE 40 MG/10 ML VIAL INJ IV SCH (09:21)
[2022-04-30] MEDS: HEPARIN SODIUM (PORCINE) 5000 UNITS/ML 1ML VIAL SC SCH ×2 (09:32→23:15)
[2022-04-30 13:00] VITALS: BP 115/56
[2022-04-30 15:00] VITALS: BP 115/56
[2022-04-30] MEDS ORDERED: EPOETIN ALFA-EPBX 4,000 UNIT/ML VIAL SC ONE (21:00)
[2022-04-30 22:00] VITALS: BP 126/44
[2022-04-30] MEDS: ATORVASTATIN 20 MG TAB PO SCH (23:14)
[2022-05-01] MEDS: IPRATROPIUM BROM 0.5 MG/2.5ML INH SOL NEB SCH ×3 (00:19→11:39)
[2022-05-01] MEDS: ALBUTEROL MEDNEB 2.5 mg/3ml NEB NEB SCH ×3 (00:19→11:39)
[2022-05-01 05:04] VITALS: BP 101/39
[2022-05-01] MEDS: SEVELAMER 800 MG TAB PO SCH ×2 (06:35→15:32)
[2022-05-01] MEDS: LEVOTHYROXINE SODIUM 50 MCG TAB PO SCH (06:36)
[2022-05-01 08:30] VITALS: BP 137/46
[2022-05-01] MEDS: PANTOPRAZOLE 40 MG/10 ML VIAL INJ IV SCH (09:08)
[2022-05-01] MEDS: DOCUSATE SOD 100 MG CAP PO SCH (09:08)
[2022-05-01] MEDS: GABAPENTIN 300 MG CAP PO SCH (09:08)
[2022-05-01] MEDS: PIPERACILLIN-TAZOB 2.25GM 50 ML IV SCH (09:08)
[2022-05-01] MEDS: FERROUS SULFATE 325mg EC TAB PO SCH (09:08)
[2022-05-01] MEDS: DOXYCYCLINE 100 MG TAB/CAP PO SCH (09:08)
[2022-05-01] MEDS: CHOLECALCIFEROL (VITD3) 1,000UNIT=25mCg TAB PO SCH (09:09)
[2022-05-01] MEDS: HEPARIN SODIUM (PORCINE) 5000 UNITS/ML 1ML VIAL SC SCH (09:20)
[2022-05-01] MEDS: ACETAMINOPHEN 325 MG TAB PO PRN (09:28)
[2022-05-01 11:54] VITALS: BP 111/50
[2022-05-01] MEDS ORDERED: LACTULOSE 20Gm/30ML SOLN PO ONE (12:00)
[2022-05-01 12:30] VITALS: BP 117/35
[2022-05-01 17:10] VITALS: BP 102/49
== END 2022-05-01 17:15 | disposition home or self-care (01) | DRG 314 ==
LOC: DOU IN ICU 16:36 → ICU CENTRL 04-24 18:19 → TELE-EAST 04-28 17:42
PROVIDERS: ADMIT Internal Medicine; ATTEND Nurse Practitioner Acute Care
PROC: 5A1D70Z Performance of Urinary Filtration, Intermittent, Less than 6 Hours Per Day (ICD-10-PCS; principal; 2022-04-26)
PROC: 0JH63XZ Insertion of Tunneled Vascular Access Device into Chest Subcutaneous Tissue and Fascia, Percutaneous Approach (ICD-10-PCS; 2022-04-27)
PROC: 02HV33Z Insertion of Infusion Device into Superior Vena Cava, Percutaneous Approach (ICD-10-PCS; 2022-04-27)
PROC: B5181ZA Fluoroscopy of Superior Vena Cava using Low Osmolar Contrast, Guidance (ICD-10-PCS; 2022-04-27)
PROC: B548ZZA Ultrasonography of Superior Vena Cava, Guidance (ICD-10-PCS; 2022-04-27)
PROC: 5A1D70Z Performance of Urinary Filtration, Intermittent, Less than 6 Hours Per Day (ICD-10-PCS; 2022-04-28)
PROC: 5A1D70Z Performance of Urinary Filtration, Intermittent, Less than 6 Hours Per Day (ICD-10-PCS; 2022-04-30)
DX: T82.590A Other mechanical complication of surgically created arteriovenous fistula, initial encounter (principal); A41.9 Sepsis, unspecified organism; I60.9 Nontraumatic subarachnoid hemorrhage, unspecified; N18.6 End stage renal disease; R65.21 Severe sepsis with septic shock; I50.22 Chronic systolic (congestive) heart failure; E03.9 Hypothyroidism, unspecified; E11.22 Type 2 diabetes mellitus with diabetic chronic kidney disease; E66.01 Morbid (severe) obesity due to excess calories; I08.1 Rheumatic disorders of both mitral and tricuspid valves; I48.91 Unspecified atrial fibrillation; D63.8 Anemia in other chronic diseases classified elsewhere; Y83.8 Other surgical procedures as the cause of abnormal reaction of the patient, or of later complication, without mention of misadventure at the time of the procedure; Z68.34 Body mass index [BMI] 34.0-34.9, adult; Z99.2 Dependence on renal dialysis; Y92.89 Other specified places as the place of occurrence of the external cause
CPT/HCPCS: 36415; 36600; 71045; 76942; 80048; 80053; 80202; 82805; 82962; 85018; 85025; 85610; 85730; 87040; 87070; 87077; 87081; 87205; 87340; 87426; 90935; 93971; 94640; 97110; 97116; 97163; 97530; 99152; C9113; G0378; J1642; J2001; J2250; J2543; J7060